=== PATIENT | male | born 1945 | race Caucasian/White ===

== ENCOUNTER 2022-08-24 11:06 | Outpatient (CLI) | payer MEDICARE ==
[2022-08-24 12:02] LABS: Hemoglobin 14.1 g/dL (13.5-17.5); Mean Corpuscular HGB CONC 31.5 g/dL (32.0-36.0); Mean Corpuscular Hemoglobin 29.1 pg (27.0-33.0); Mean Corpuscular Volume 92.6 fl (81.2-95.1); Mean Platelet Volume 9.4 fl (7.4-10.4); Platelet Count 291 10x3/uL (150-450); RBC Distribution Width 15.4 % (11.5-14.5); Red Blood Cell (RBC) Count 4.84 10x6/uL (4.32-5.72); White Blood Cell (WBC) Count 10.9 10x3/uL (3.5-10.5)
[2022-08-24 12:24] LABS: Prothrombin Time 10.9 sec (9.5-12.1)
[2022-08-24 12:27] LABS: ALT (SGPT) 22 U/L (8-55); AST (SGOT) 24 U/L (5-34); Alkaline Phosphatase 76 U/L (40-110); Anion Gap 14 mmol/L (10-20); BUN (Urea Nitrogen) 25 mg/dL (8.4-25.7); Bilirubin, Total 0.3 mg/dL (0.2-1.2); Calc. Creatinine Clearance 0 mL/min (70-130); Calcium 10.4 mg/dL (7.8-10.44); Carbon Dioxide 27 mmol/L (23-31); Chloride 102 mmol/L (98-107); Estimated GFR 57; Globulin 2.9 g/dL (2.4-3.5); Glucose 134 mg/dL (83-110); Potassium 4.5 mmol/L (3.5-5.1); Protein, Total 6.9 g/dL (5.8-8.1); Sodium 138 mmol/L (136-145)
== END 2022-08-24 11:07 | disposition home or self-care (01) ==
LOC: CSHLAB 11:06
PROVIDERS: ATTEND Specialist
DX: Z01.812 Encounter for preprocedural laboratory examination (principal); I48.91 Unspecified atrial fibrillation
CPT/HCPCS: 80053; 83735; 85027; 85610

== ENCOUNTER 2022-08-27 09:41 | Day surgery (SDC) | payer MEDICARE ==
[2022-08-27] MEDS ORDERED: PROPOFOL 20 ML ONE (10:57)
== END 2022-08-27 12:00 | disposition home or self-care (01) ==
LOC: CSHSDC 09:41
PROVIDERS: ATTEND Specialist
DX: I48.19 Other persistent atrial fibrillation (principal); I10 Essential (primary) hypertension; I25.118 Atherosclerotic heart disease of native coronary artery with other forms of angina pectoris; E78.2 Mixed hyperlipidemia; E78.5 Hyperlipidemia, unspecified; R73.09 Other abnormal glucose; F32.A Depression, unspecified; J44.9 Chronic obstructive pulmonary disease, unspecified; I48.0 Paroxysmal atrial fibrillation; K21.00 Gastro-esophageal reflux disease with esophagitis, without bleeding; K44.9 Diaphragmatic hernia without obstruction or gangrene; Z87.19 Personal history of other diseases of the digestive system; Z79.01 Long term (current) use of anticoagulants; Z79.899 Other long term (current) drug therapy; Z79.82 Long term (current) use of aspirin; Z90.49 Acquired absence of other specified parts of digestive tract; F17.210 Nicotine dependence, cigarettes, uncomplicated; Z88.8 Allergy status to other drugs, medicaments and biological substances
CPT/HCPCS: 92960; 93005; 93010; J2704

== ENCOUNTER 2023-08-27 15:12 | Inpatient (IN) | payer MEDICARE ==
[~2023-08-27 15:12] MED LIST: Iopamidol 370 76% 100 ML VIAL ONE
[2023-08-27] MEDS ORDERED: methylPREDNISolone Sod Succ/PF 125 MG/2 ML VIAL ONE (15:38)
[2023-08-27] MEDS ORDERED: Ipratropium Bromide 2.5 ml Neb ONE (15:39)
[2023-08-27] MEDS ORDERED: Albuterol 2.5 MG (3 mL) NEB ONE (15:39)
[2023-08-27 15:56] LABS: #Basophils 0.09 10x3/uL (0.0-0.2); #Eosinphils 0.14 10x3/uL (0.0-0.5); #Monocytes 0.95 10x3/uL (0.0-1.1); #Neutrophils 11.86 10x3/uL (1.5-8.4); %Basophils 0.6 % (0.0-2.0); %Lymphocytes 6.3 % (18.0-47.0); %Monocytes 6.7 % (0.0-10.0); %Neutrophils 83.3 % (40.0-75.0); Hematocrit 41.7 % (38.8-50.0); Hemoglobin 13.5 g/dL (13.5-17.5); Mean Corpuscular HGB CONC 32.4 g/dL (32.0-36.0); Mean Corpuscular Hemoglobin 30.2 pg (27.0-33.0); Mean Corpuscular Volume 93.3 fl (81.2-95.1); Mean Platelet Volume 9.7 fl (7.4-10.4); Platelet Count 301 10x3/uL (150-450); RBC Distribution Width 14.5 % (11.5-14.5); Red Blood Cell (RBC) Count 4.47 10x6/uL (4.32-5.72); White Blood Cell (WBC) Count 14.2 10x3/uL (3.5-10.5)
[2023-08-27 16:11] LABS: ALT (SGPT) 17 U/L (8-55); AST (SGOT) 27 U/L (5-34); Albumin 3.5 g/dL (3.4-4.8); Alkaline Phosphatase 62 U/L (40-110); Anion Gap 19 mmol/L (10-20); BUN (Urea Nitrogen) 37 mg/dL (8.4-25.7); Bilirubin, Total 0.5 mg/dL (0.2-1.2); Calc. Creatinine Clearance 0 mL/min (70-130); Calcium 9.7 mg/dL (7.8-10.44); Carbon Dioxide 30 mmol/L (23-31); Chloride 91 mmol/L (98-107); Estimated GFR 36; Globulin 3.3 g/dL (2.4-3.5); Glucose 199 mg/dL (83-110); Potassium 4.1 mmol/L (3.5-5.1); Protein, Total 6.8 g/dL (5.8-8.1); Sodium 136 mmol/L (136-145)
[2023-08-27 16:17] LABS: Troponin I 0.017 ng/mL (< 0.028)
[2023-08-27] MEDS ORDERED: Famotidine/PF 20 mg/2ml Vial ONE (16:52)
[2023-08-27] MEDS ORDERED: diphenhydrAMINE 50 MG/ML VIAL ONE (16:52)
[2023-08-27] MEDS ORDERED: Benzonatate 100 MG CAP PO PRN (18:42)
[2023-08-27] MEDS ORDERED: Acetaminophen 325 MG TAB PO PRN (18:43)
[2023-08-27] MEDS: Atorvastatin Calcium 40 MG TAB PO SCH (20:33)
[2023-08-27] MEDS: Fenofibrate Nanocrystallized 145 MG TAB PO SCH (20:33)
[2023-08-27] MEDS: Apixaban 2.5 MG TAB PO SCH (20:33)
[2023-08-27] MEDS: Flecainide 50 MG TAB PO SCH (20:33)
[2023-08-27] MEDS: Lisinopril 5 MG TAB PO SCH (20:34)
[2023-08-27] MEDS: Azithromycin 500 MG in Sodium Chloride 0.9% 250 ML 250 ML IVPB SCH (20:36)
[2023-08-27] MEDS: Pantoprazole DR 40 MG TAB PO SCH (20:36)
[2023-08-27] MEDS: Senokot S 8.6-50 MG TAB PO SCH (20:36)
[2023-08-27] MEDS: methylPREDNISolone Sod Succ 40 MG VIAL IVP SCH (21:39)
[2023-08-27 21:45] VITALS: BMI 31.8
[2023-08-27] MEDS: Ipratropium/Albuterol 3 ML NEB NEB SCH (21:51)
[2023-08-28 04:13] LABS: #Basophils 0.06 10x3/uL (0.0-0.2); #Monocytes 0.48 10x3/uL (0.0-1.1); #Neutrophils 16.04 10x3/uL (1.5-8.4); %Basophils 0.3 % (0.0-2.0); %Monocytes 2.8 % (0.0-10.0); Hematocrit 39.6 % (38.8-50.0); Hemoglobin 12.9 g/dL (13.5-17.5); Mean Corpuscular HGB CONC 32.6 g/dL (32.0-36.0); Mean Corpuscular Hemoglobin 30.6 pg (27.0-33.0); Mean Corpuscular Volume 93.8 fl (81.2-95.1); Mean Platelet Volume 10.3 fl (7.4-10.4); Platelet Count 303 10x3/uL (150-450); RBC Distribution Width 14.4 % (11.5-14.5); Red Blood Cell (RBC) Count 4.22 10x6/uL (4.32-5.72); White Blood Cell (WBC) Count 17.4 10x3/uL (3.5-10.5)
[2023-08-28 04:37] LABS: Anion Gap 22 mmol/L (10-20); BUN (Urea Nitrogen) 42 mg/dL (8.4-25.7); Calc. Creatinine Clearance 44 mL/min (70-130); Carbon Dioxide 25 mmol/L (23-31); Chloride 93 mmol/L (98-107); Estimated GFR 30; Glucose 259 mg/dL (83-110); Potassium 4.3 mmol/L (3.5-5.1); Sodium 136 mmol/L (136-145)
[2023-08-28] MEDS: Mometasone 100 MCG/PUFF (1 INHALER) INH SCH (07:10)
[2023-08-28] MEDS: Aspirin Chewable 81 MG TAB PO SCH (08:25)
[2023-08-28] MEDS: Tamsulosin HCl 0.4 MG CAP PO SCH (08:27)
[2023-08-28] MEDS ORDERED: Dextrose 50% Abboject 50 ML SYRINGE SLOW IVP PRN (08:41)
[2023-08-28] MEDS ORDERED: Dextrose 5% in Water 1,000 ML IV PRN (08:41)
[2023-08-28] MEDS ORDERED: Glucagon 1 MG/ML KIT IM PRN (08:41)
[2023-08-28] MEDS ORDERED: HumaLOG 300 UNITS/3 ML VIAL SC PRN (08:41)
[2023-08-28] MEDS ORDERED: Non-Formulary Medication 1 EACH (Fluticasone/Umeclidin/Vilanter [Trelegy Ellipta 100-62.5- INH SCH (09:00)
[2023-08-28] MEDS: Lactated Ringer's 1,000 ML IV SCH (10:43)
[2023-08-28] MEDS: methylPREDNISolone Sod Succ 40 MG VIAL IVP SCH (10:44)
[2023-08-28] MEDS: Cholecalciferol 1,000 UNITS (25 MCG) TAB PO SCH (10:44)
[2023-08-28] MEDS: tiZANidine HCl 4 MG TAB PO SCH (11:36)
[2023-08-28] MEDS: Ipratropium/Albuterol 3 ML NEB ONE (15:55)
[2023-08-28] MEDS: Ipratropium/Albuterol 3 ML NEB NEB SCH (18:49)
[2023-08-28] MEDS: HYDROcodone/Acetaminophen 5/325 mg Tablet PO PRN (20:55)
[2023-08-28] MEDS: Magnesium Oxide 400 MG TAB PO SCH (21:21)
[2023-08-29 03:47] LABS: #Basophils 0.03 10x3/uL (0.0-0.2); #Monocytes 0.81 10x3/uL (0.0-1.1); #Neutrophils 19.56 10x3/uL (1.5-8.4); %Basophils 0.1 % (0.0-2.0); %Lymphocytes 2.9 % (18.0-47.0); %Monocytes 3.8 % (0.0-10.0); %Neutrophils 91.4 % (40.0-75.0); Hematocrit 40.1 % (38.8-50.0); Hemoglobin 12.7 g/dL (13.5-17.5); Mean Corpuscular HGB CONC 31.7 g/dL (32.0-36.0); Mean Corpuscular Volume 94.8 fl (81.2-95.1); Platelet Count 324 10x3/uL (150-450); RBC Distribution Width 14.3 % (11.5-14.5); Red Blood Cell (RBC) Count 4.23 10x6/uL (4.32-5.72); White Blood Cell (WBC) Count 21.4 10x3/uL (3.5-10.5)
[2023-08-29 03:55] LABS: Anion Gap 25 mmol/L (10-20); BUN (Urea Nitrogen) 50 mg/dL (8.4-25.7); Calc. Creatinine Clearance 51 mL/min (70-130); Calcium 10.2 mg/dL (7.8-10.44); Carbon Dioxide 25 mmol/L (23-31); Chloride 91 mmol/L (98-107); Estimated GFR 35; Glucose 221 mg/dL (83-110); Potassium 4.4 mmol/L (3.5-5.1); Sodium 137 mmol/L (136-145)
[2023-08-29] MEDS ORDERED: Lactated Ringer's 1,000 ML IV SCH (08:30)
[2023-08-29] MEDS: Milk Of Magnesia 30 ML UDCUP PO PRN (08:53)
[2023-08-29 13:07] VITALS: BP 124/59; TEMP 97.5
== END 2023-08-29 12:54 | disposition home or self-care (01) | DRG 189 ==
LOC: SUATTDRO 15:12 → CSHERS 15:12 → CSHTELE 18:28 → OBSVTOIN 08-28 11:19
PROVIDERS: ADMIT Internal Medicine; ATTEND Internal Medicine
DX: J96.21 Acute and chronic respiratory failure with hypoxia (principal); J44.1 Chronic obstructive pulmonary disease with (acute) exacerbation; C34.90 Malignant neoplasm of unspecified part of unspecified bronchus or lung; N17.9 Acute kidney failure, unspecified; E78.5 Hyperlipidemia, unspecified; N40.0 Benign prostatic hyperplasia without lower urinary tract symptoms; N18.9 Chronic kidney disease, unspecified; E11.22 Type 2 diabetes mellitus with diabetic chronic kidney disease; Z66 Do not resuscitate; I12.9 Hypertensive chronic kidney disease with stage 1 through stage 4 chronic kidney disease, or unspecified chronic kidney disease; Z79.82 Long term (current) use of aspirin; Z99.81 Dependence on supplemental oxygen; Z79.899 Other long term (current) drug therapy; Z90.49 Acquired absence of other specified parts of digestive tract
CPT/HCPCS: 36415; 36416; 71045; 71275; 74018; 80048; 80053; 84484; 85025; 93005; 94640; 94664; 94760; 96374; 96375; J0456; J1200; J2920; J2930; J7050; J7120; J7611; J7620; Q9967; S0028